=== PATIENT | female | born 1965 | race Caucasian/White ===

== ENCOUNTER 2024-03-10 14:48 | Outpatient (AMB) | payer OTHER, SELFPAY ==
--- NOTE | 2024-03-10 14:59 | A.OFFPC_ITS ---
Vital Signs 03/10/24 15:03 Height 5 ft 1 in Weight 104 lb 4 oz BMI 19.7 BP 118/76 Blood Pressure Location Rt brachial Position Sitting Respiration 12 Pulse 88 Pulse Source Pulse Oximeter Temp 97.8 F Temp Source Oral Pulse Oximetry (%) 99 Oxygen Delivery Method Room Air Intake Visit Reasons: Establish Care transfer from [facility] Is last menstrual period known: No Allergies lidocaine Allergy (Severe, Verified 03/10/24 15:01) Heart erthythmia Tobacco use date assessed: 03/10/24 Dental Screening Dental Screen Date: 03/10/24 Did you have a dental visit in the last 12 months?: Yes Did you have a dental problem in the last 6 months where you did not have access to dental care?: No Was dental information given to patient?: Patient has dentist HPI HPI Comments History of Present Illness Details This is a 58 year old female with a past medical history of hyperlipidemia, anxiety presenting to [facility]. Her previous records are not available for review. Multiple concerns Concerns over development of multiple henderson angiomas over the course of 2-3 months. Saw dermatology. She has been bothered by dry, gritty and injected eyes. She was worried about thyroid eye disease. She saw ophtho who confirmed they were dry-advised to use eye drops She reports chronic polyuria. She says when previously hospitalized they nursing staff could not believe how much urine she produced. She has history of dyspepsia, heartburn. She had double endoscopy within the last few years She does endorse dry mouth, frequent dental caries as child. She denies rash, fevers. [facility] Medical History (Updated 03/12/24 @ 11:17 by Teodora Bradley MD) IBS (irritable bowel syndrome) Shingles Hernia Surgical History (Updated 03/10/24 @ 15:34 by Taryn Vazquez CMA) H/O Spinal surgery H/O breast biopsy H/O section Family History (Updated 03/10/24 @ 15:24 by Taryn Vazquez CMA) Mother Hypercholesteremia Thyroid disorder Dementia Father Brain cancer Maternal Grandmother Alzheimer disease Paternal Grandmother Dementia Paternal Grandfather Prostate cancer Social History Housing: House Patient Tobacco Use Status: Never used Tobacco e-Cigarette/Vaping Use: Never Used service: No Current occupational status: employed Current occupation: CPA Current occupational exposures/hazards: No Cognitive needs: No Hearing needs: No Vision needs: No Questionnaire PHQ-9 Over the last 2 weeks, how often have you been bothered by any of the following problems? 1. Little interest or pleasure in doing things: not at all 2. Feeling down, depressed, or hopeless: not at all 3. Trouble falling or staying asleep, or sleeping too much: several days 4. Feeling tired or having little energy: not at all 5. Poor appetite or overeating: not at all 6. Feeling bad about yourself - or that you are a failure or have let yourself or your family down: not at all 7. Trouble concentrating on things, such as reading the newspaper or watching television: several days 8. Moving or speaking so slowly that other people could have noticed. Or the opposite - being so fidgety or restless that you have been moving around a lot more than usual: not at all 9. Thoughts that you would be better off or of hurting yourself in some way: not at all Total score: 2 Depression Screening Interpretation: Negative Depression Screening Done: Yes 74381 - PHQ-9 Billing: Yes Source: Developed by Drs. Kendrick Randall, Rhiannon Osborn, Gilberto Stubbs and colleagues, with an educational latricia from [employer]. Thrive Questionnaire Date Thrive assessed: 03/10/24 I am a: Patient What is your living situation today?: I have a steady place to live Within the past 12 months, did the food you bought not last and you didn't have the money to get more?: Never true Within the past 12 months, did you worry whether your food would run out before you got money to buy more?: Never true Do you have trouble paying for medicines?: No Do you have trouble getting transportation to medical appointments?: No Do you have trouble paying your heating and electricity bill?: No Do you have trouble taking care of your child, family member or friend?: No Do you have trouble with day-to-day activities such as bathing, preparing meals, shopping, managing finances, etc.?: No Are you currently unemployed and looking for a job?: No Are you interested in more education?: No Please select the resources that you would like help with: None Currently or been in a relationship where the following occur: no concerns reported THRIVE Score: 0 AUDIT C Alcohol Use Questionnaire (AUDIT-C) 1. How often do you have a drink containing alcohol?: 2-3 times a week 2. How many drinks containing alcohol do you have on a typical day when you are drinking?: 1 or 2 3. How often do you have six or more drinks on one occasion?: Never Total Score: 3 RAD-7 AMB Questionnaire RAD-7 Date RAD - 7 assessed: 03/10/24 Feeling nervous, anxious, or on edge: 1 = Several days Not being able to stop or control worryin = Not at all Worrying too much about different things: 1 = Several days Trouble relaxin = Several days Being so restless that it is hard to sit still: 0 = Not at all Becoming easily annoyed or irritable: 1 = Several days Feeling afraid as if something awful might happen: 0 = Not at all Total RAD-7 score (0-4 normal; 5-9 mild; 10-14 moderate; 15-21 severe): 4 Source: Developed by Drs. Kendrick Randall, Rhiannon Osborn, Gilberto Stubbs and colleagues, with an educational latricia from [employer]. RAD-7 Assessment Billing RAD-7 Assessment Tool: RAD-7 Assessment 56556 Review of Systems Const Details: ROS see HPI Physical exam (Primary Care) Vital Signs: Last Vital Signs Temp 97.8 F 03/10/24 15:03 Pulse 88 03/10/24 15:03 Resp 12 03/10/24 15:03 BP 118/76 03/10/24 15:03 Pulse Ox 99 03/10/24 15:03 Oxygen Delivery Method Room Air 03/10/24 15:03 PHYSICAL EXAM: GENERAL: Alert and oriented x 3. NAD EYES: EOMI. scleral, conjectival injection HENT: Moist mucous membranes. scattered anterior cervical LN LUNGS: Clear to auscultation bilaterally. CARDIOVASCULAR: Regular rate and rhythm. +diastolic murmur ABDOMEN: Soft, non-tender +bs EXTREMITIES: No edema. Non-tender. SKIN: No rashes or lesions. Warm. NEUROLOGIC: No focal neurological deficits. PSYCHIATRIC: Cooperative. Appropriate mood and affect BMI result Body Mass Index 19.7 Tobacco/Smoking Status: Tobacco use Status Tobacco use date assessed 03/10/24 03/10/24 15:06 Patient Tobacco Use Status Never used Tobacco 03/10/24 15:06 e-Cigarette/Vaping Use Never Used 03/10/24 15:06 PHQ-9: PHQ-9 Score PHQ-9: Total score 2 03/12/24 11:17 Depression Screening Interpretation: Negative Thrive Assessment: Date of Thrive Assessment Date Thrive assessed 03/10/24 03/10/24 15:38 Currently or been in a relationship where the following occur: no concerns reported Assessment and Plan Assessment & Plan (1) Henderson angioma: Comment: referral to [place] [facility] Code(s): D18.01 - Hemangioma of skin and subcutaneous tissue (2) Dry eyes: Comment: run autoimmune labs. Code(s): H04.123 - Dry eye syndrome of bilateral lacrimal glands (3) Polyuria: Code(s): R35.89 - Other polyuria (4) Weight loss: Code(s): R63.4 - Abnormal weight loss (5) Hyperlipidemia: Code(s): E78.5 - Hyperlipidemia, unspecified Qualifiers: Hyperlipidemia type: unspecified Qualified Code(s): E78.5 - Hyperlipidemia, unspecified (6) Screening for metabolic disorder: Code(s): Z13.228 - Encounter for screening for other metabolic disorders (7) Heart murmur: Comment: Echo ordered Code(s): R01.1 - Cardiac murmur, unspecified Orders: Orders Complete Blood Count Auto Diff 03/10/24 D18.01 - Hemangioma of skin and subcutaneous tissue, E78.5 - Hyperlipidemia, unspecified, H04.123 - Dry eye syndrome of bilateral lacrimal glands, R35.89 - Other polyuria, R63.4 - Abnormal weight loss, Z13.228 - Encounter for screening for other metabolic disorders Comprehensive Met. Panel 03/10/24 D18.01 - Hemangioma of skin and subcutaneous tissue, E78.5 - Hyperlipidemia, unspecified, H04.123 - Dry eye syndrome of bilateral lacrimal glands, R35.89 - Other polyuria, R63.4 - Abnormal weight loss, Z13.228 - Encounter for screening for other metabolic disorders Anti-Centromere B Antibodies 03/10/24 D18.01 - Hemangioma of skin and subcutaneous tissue, E78.5 - Hyperlipidemia, unspecified, H04.123 - Dry eye syndrome of bilateral lacrimal glands, R35.89 - Other polyuria, R63.4 - Abnormal weight loss, Z13.228 - Encounter for screening for other metabolic disorders Neutrophil Cytoplasma Ab 03/10/24 D18.01 - Hemangioma of skin and subcutaneous tissue, E78.5 - Hyperlipidemia, unspecified, H04.123 - Dry eye syndrome of bilateral lacrimal glands, R35.89 - Other polyuria, R63.4 - Abnormal weight loss, Z13.228 - Encounter for screening for other metabolic disorders LUCIE Reflex Titer and Pattern 03/10/24 D18.01 - Hemangioma of skin and subcutaneous tissue, E78.5 - Hyperlipidemia, unspecified, H04.123 - Dry eye syndrome of bilateral lacrimal glands, R35.89 - Other polyuria, R63.4 - Abnormal weight loss, Z13.228 - Encounter for screening for other metabolic disorders Tryptase 03/10/24 D18.01 - Hemangioma of skin and subcutaneous tissue, E78.5 - Hyperlipidemia, unspecified, H04.123 - Dry eye syndrome of bilateral lacrimal glands, R35.89 - Other polyuria, R63.4 - Abnormal weight loss, Z13.228 - Encounter for screening for other metabolic disorders Vitamin B12 03/10/24 D18.01 - Hemangioma of skin and subcutaneous tissue, E78.5 - Hyperlipidemia, unspecified, H04.123 - Dry eye syndrome of bilateral lacrimal glands, R35.89 - Other polyuria, R63.4 - Abnormal weight loss, Z13.228 - Encounter for screening for other metabolic disorders Sjogren's Antibodies 03/10/24 D18.01 - Hemangioma of skin and subcutaneous tissue, E78.5 - Hyperlipidemia, unspecified, H04.123 - Dry eye syndrome of bilateral lacrimal glands, R35.89 - Other polyuria, R63.4 - Abnormal weight loss, Z13.228 - Encounter for screening for other metabolic disorders Osmolality, Serum 03/10/24 D18.01 - Hemangioma of skin and subcutaneous tissue, E78.5 - Hyperlipidemia, unspecified, H04.123 - Dry eye syndrome of bilateral lacrimal glands, R35.89 - Other polyuria, R63.4 - Abnormal weight loss, Z13.228 - Encounter for screening for other metabolic disorders Scleroderma 70 Antibody 03/10/24 D18.01 - Hemangioma of skin and subcutaneous tissue, E78.5 - Hyperlipidemia, unspecified, H04.123 - Dry eye syndrome of bilateral lacrimal glands, R35.89 - Other polyuria, R63.4 - Abnormal weight loss, Z13.228 - Encounter for screening for other metabolic disorders Erythrocyte Sedimentation Rate 03/10/24 D18.01 - Hemangioma of skin and subcutaneous tissue, E78.5 - Hyperlipidemia, unspecified, H04.123 - Dry eye syndrome of bilateral lacrimal glands, R35.89 - Other polyuria, R63.4 - Abnormal weight loss, Z13.228 - Encounter for screening for other metabolic disorders Thyroid Stimulating Hormone 03/10/24 D18.01 - Hemangioma of skin and subcutaneous tissue, E78.5 - Hyperlipidemia, unspecified, H04.123 - Dry eye syndrome of bilateral lacrimal glands, R35.89 - Other polyuria, R63.4 - Abnormal weight loss, Z13.228 - Encounter for screening for other metabolic disorders UA w Microscopic 03/10/24 D18.01 - Hemangioma of skin and subcutaneous tissue, E78.5 - Hyperlipidemia, unspecified, H04.123 - Dry eye syndrome of bilateral lacrimal glands, R35.89 - Other polyuria, R63.4 - Abnormal weight loss, Z13.228 - Encounter for screening for other metabolic disorders Osmolality Urine 03/10/24 D18.01 - Hemangioma of skin and subcutaneous tissue, E78.5 - Hyperlipidemia, unspecified, H04.123 - Dry eye syndrome of bilateral lacrimal glands, R35.89 - Other polyuria, R63.4 - Abnormal weight loss, Z13.228 - Encounter for screening for other metabolic disorders Sodium, 24Hr Urine Group 03/10/24 D18.01 - Hemangioma of skin and subcutaneous tissue, E78.5 - Hyperlipidemia, unspecified, H04.123 - Dry eye syndrome of bilateral lacrimal glands, R35.89 - Other polyuria, R63.4 - Abnormal weight loss, Z13.228 - Encounter for screening for other metabolic disorders Lipid Panel 03/10/24 E78.5 - Hyperlipidemia, unspecified Coding Level of Care Code Tele Est Pt Level 5 (35960) Complex EM visit Add On G2211 Diagnoses Henderson angioma D18.01 Dry eyes H04.123 Polyuria R35.89 Weight loss R63.4 Hyperlipidemia, unspecified hyperlipidemia type E78.5 Hyperlipidemia type: unspecified Screening for metabolic disorder Z13.228 Heart murmur R01.1 Additional Codes RAD-7 Assessment Billing - RAD-7 Assessment Tool: RAD-7 Assessment 35966 ([id number])
[2024-03-10 15:03] VITALS: BP 118/76; PULSE 88; RESP 12; TEMP 36.6; O2SAT 99; BMI 19.7
== END 2024-03-10 16:29 | disposition home or self-care (01) ==
PROVIDERS: PCP Internal Medicine; Visit Provider Internal Medicine
DX: D18.01 Hemangioma of skin and subcutaneous tissue (principal); H04.123 Dry eye syndrome of bilateral lacrimal glands; R35.89 Other polyuria; R63.4 Abnormal weight loss; E78.5 Hyperlipidemia, unspecified; Z13.228 Encounter for screening for other metabolic disorders; R01.1 Cardiac murmur, unspecified
CPT/HCPCS: 99214; G2211

== ENCOUNTER 2024-03-13 08:43 | Outpatient (REF) | payer OTHER, SELFPAY ==
[2024-03-13 11:31] LABS: MANUAL DIFF FLAG NO
[2024-03-13 11:35] LABS: Basophils Percent Auto 0.9 % (0-2); Eosinophils Absolute Auto 0.1 X10*3/uL (0.0-0.4); Eosinophils Percent Auto 3.1 % (0-4); Hematocrit 39.7 % (37.0-47.0); Hemoglobin 13.1 g/dl (12.0-16.0); Imm Gran Abs Auto 0.01 X10*3/uL (0.00-0.03); Imm Gran Pct Auto 0.3 % (0.0-0.4); Lymphocytes Absolute Auto 1.2 X10*3/uL (1.2-4.9); Lymphocytes Percent Auto 33.1 % (20-40); Mean Corpuscular Volume 91.1 fL (80.0-98.0); Mean Platelet Volume 10.9 fL (9.4-12.3); Monocytes Absolute Auto 0.2 X10*3/uL (0.1-1.2); Monocytes Percent Auto 6.6 % (2-11); Platelet Count 227 X10*3/uL (160-400); Red Blood Count 4.36 X10*6/uL (4.20-5.50); White Blood Count 3.5 X10*3/uL (4.8-10.8)
[2024-03-13 12:17] LABS: Erythrocyte Sedimentation Rate 6 MM/HR (0-20)
[2024-03-13 12:19] LABS: Appearance Urine Clear; Color Urine Yellow; Glucose Urine UA Negative (Negative); Leukocyte Esterase Urine Negative (Negative); Nitrite Urine Negative (Negative); Specific Gravity - Urine <= 1.005 (1.005-1.025); Urine Blood Negative (Negative); Urine Ketones Negative (Negative); Urine Protein Negative (Neg-Trace)
[2024-03-13 12:25] LABS: Bacteria Urine None Seen (None Seen); Hyaline Casts Urine 0-2 /LPF (0-2); RBC Urine 0-2 /HPF (0-2); Squamous Epithelial Cell Urine 0-2 /HPF (0-2); WBC Urine 0-5 /HPF (0-5)
[2024-03-13 12:27] LABS: Alanine Aminotransferase 32 U/L (0-31); Albumin Level 4.3 g/dL (3.5-5.0); Alkaline Phosphatase 73 U/L (39-117); Anion Gap 14 (12-20); Aspartate Amino Transferase 33 U/L (5-31); Bilirubin Total 0.9 mg/dL (0.0-1.0); Blood Urea Nitrogen 14 mg/dL (9-16); Calcium 9.8 mg/dL (8.4-10.2); Carbon Dioxide 27 mmol/L (22-29); Chloride 106 mmol/L (96-108); Cholesterol 202 mg/dL (<200); Estimated Glomerular Filt Rate > 60; Glucose Random 94 mg/dL (60-115); HDL Cholesterol 82 mg/dL (>40); LDL Cholesterol Calculated 112 mg/dL (<100); Potassium 3.8 mmol/L (3.3-5.1); Sodium 143 mmol/L (135-145); Total Protein 6.5 g/dL (6.5-8.0); Triglycerides 43 mg/dL (<150)
[2024-03-13 12:29] LABS: Thyroid Stimulating Hormone 2.17 uIU/mL (0.32-4.0)
[2024-03-13 12:29] LABS: Osmolality Urine 184 mosm/kg (373-1093)
[2024-03-13 12:36] LABS: Vitamin B12 420 pg/mL (200-900)
[2024-03-13 15:22] LABS: Osmolality, Serum 293 mosm/kg (281-305)
[2024-03-14 20:08] LABS: Anti-Centromere B Antibodies <1.0 NEG AI (<1.0 NEG); Antibody to SS-A Antigen <1.0 NEG AI (<1.0 NEG); Antibody to SS-B Antigen <1.0 NEG AI (<1.0 NEG); Scleroderma 70 Antibody <1.0 NEG AI (<1.0 NEG)
[2024-03-15 13:38] LABS: Neutrophil Cyto Ab Screen NEGATIVE (NEGATIVE)
[2024-03-16 12:33] LABS: ANA Titer 2 1:40 titer; Anti Nuclear Antibody Screen POSITIVE (NEGATIVE); Anti Nuclear Antibody Titer 1:40 titer
== END 2024-03-13 08:44 | disposition home or self-care (01) ==
LOC: HO.WFDLDS 08:43
PROVIDERS: Visit Provider Internal Medicine
DX: D18.01 Hemangioma of skin and subcutaneous tissue (principal); H04.123 Dry eye syndrome of bilateral lacrimal glands; R35.89 Other polyuria; R63.4 Abnormal weight loss; E78.5 Hyperlipidemia, unspecified; Z13.228 Encounter for screening for other metabolic disorders
CPT/HCPCS: 36415; 80053; 80061; 81001; 82607; 83520; 83930; 83935; 84443; 85025; 85652; 86036; 86038; 86039; 86235

== ENCOUNTER 2024-03-28 09:13 | Outpatient (REF) | payer OTHER, SELFPAY ==
[2024-03-28 11:29] LABS: MANUAL DIFF FLAG NO
[2024-03-28 11:55] LABS: Basophils Percent Auto 0.5 % (0-2); Eosinophils Absolute Auto 0.1 X10*3/uL (0.0-0.4); Eosinophils Percent Auto 1.5 % (0-4); Hematocrit 39.3 % (37.0-47.0); Hemoglobin 13.2 g/dl (12.0-16.0); Imm Gran Abs Auto 0.01 X10*3/uL (0.00-0.03); Imm Gran Pct Auto 0.3 % (0.0-0.4); Lymphocytes Absolute Auto 1.1 X10*3/uL (1.2-4.9); Lymphocytes Percent Auto 27.4 % (20-40); Mean Corpuscular HGB Conc 33.6 g/dl (31.0-35.0); Mean Corpuscular Hemoglobin 30.3 pg (27.0-33.0); Mean Corpuscular Volume 90.3 fL (80.0-98.0); Mean Platelet Volume 10.7 fL (9.4-12.3); Monocytes Absolute Auto 0.3 X10*3/uL (0.1-1.2); Monocytes Percent Auto 6.9 % (2-11); Neutrophils Absolute Auto 2.5 x10*3/uL (2.0-8.3); Neutrophils Percent Auto 63.4 % (45-73); Platelet Count 225 X10*3/uL (160-400); Red Blood Count 4.35 X10*6/uL (4.20-5.50); Red Cell Distribution Width 13.1 % (11.0-16.0); White Blood Count 3.9 X10*3/uL (4.8-10.8)
[2024-03-28 12:09] LABS: Osmolality, Serum 297 mosm/kg (281-305)
[2024-03-28 12:17] LABS: Appearance Urine Clear; Color Urine Yellow; Glucose Urine UA Negative (Negative); Leukocyte Esterase Urine Negative (Negative); Nitrite Urine Negative (Negative); PH 6.5 (5.0-9.0); Specific Gravity - Urine <= 1.005 (1.005-1.025); Urine Blood Negative (Negative); Urine Ketones Negative (Negative); Urine Protein Negative (Neg-Trace)
[2024-03-28 12:23] LABS: Alanine Aminotransferase 25 U/L (0-31); Albumin Level 4.2 g/dL (3.5-5.0); Alkaline Phosphatase 83 U/L (39-117); Anion Gap 10 (12-20); Aspartate Amino Transferase 29 U/L (5-31); Bilirubin Total 0.4 mg/dL (0.0-1.0); Blood Urea Nitrogen 17 mg/dL (9-16); Calcium 9.5 mg/dL (8.4-10.2); Carbon Dioxide 27 mmol/L (22-29); Chloride 109 mmol/L (96-108); Estimated Glomerular Filt Rate > 60; Glucose Random 102 mg/dL (60-115); Potassium 3.7 mmol/L (3.3-5.1); Sodium 142 mmol/L (135-145); Total Protein 6.5 g/dL (6.5-8.0)
[2024-03-28 12:26] LABS: Osmolality Urine 105 mosm/kg (373-1093)
[2024-03-28 12:46] LABS: Bacteria Urine None Seen (None Seen); Hyaline Casts Urine 0-2 /LPF (0-2); RBC Urine 0-2 /HPF (0-2); Squamous Epithelial Cell Urine 0-2 /HPF (0-2); WBC Urine 0-5 /HPF (0-5)
[2024-03-28 14:21] LABS: Total Volume 24 Hour Urine 1700 mL
[2024-03-28 14:26] LABS: Creatinine, 24Hr Urine 0.8 G/Day (1.0-2.0); Creatinine, mg/dL 49.52; Sodium 24 Hr Urine 71.4 mmol/Day (40-220)
== END 2024-03-28 09:14 | disposition home or self-care (01) ==
LOC: HO.WFDLDS 09:13
PROVIDERS: Visit Provider Internal Medicine
DX: E78.5 Hyperlipidemia, unspecified (principal); R63.4 Abnormal weight loss; R35.89 Other polyuria; D18.01 Hemangioma of skin and subcutaneous tissue; H04.123 Dry eye syndrome of bilateral lacrimal glands; Z13.228 Encounter for screening for other metabolic disorders; R79.89 Other specified abnormal findings of blood chemistry; R74.8 Abnormal levels of other serum enzymes
CPT/HCPCS: 36415; 80053; 81001; 83520; 83930; 83935; 84300; 85025

== ENCOUNTER 2024-04-07 14:02 | Outpatient (AMB) | payer OTHER, SELFPAY ==
--- NOTE | 2024-04-07 14:15 | MHC.PC.OV ---
Vital Signs 04/07/24 14:16 Height 5 ft 0.83 in Weight 104 lb 2 oz BMI 19.8 BP 118/68 Blood Pressure Location Lt brachial Position Sitting Respiration 14 Pulse 87 Pulse Source Pulse Oximeter Pulse Oximetry (%) 97 Oxygen Delivery Method Room Air Intake Visit Reasons: Follow up labs Intake Note: Follow up Finished Goods Stock Clerk Required: No Allergies lidocaine Allergy (Severe, Verified 04/07/24 14:15) Heart erthythmia Tobacco use date assessed: 03/10/24 Dental Screening Dental Screen Date: 03/10/24 HPI HPI Comments History of Present Illness Details This is a 58 year old female with a past medical history of hyperlipidemia, anxiety presenting to review labs Seen recently for multiple concerns Concerns over development of multiple lorenzo angiomas over the course of 2-3 months. Saw dermatology. She has been bothered by dry, gritty and injected eyes. She was worried about thyroid eye disease. She saw ophtho who confirmed they were dry-advised to use eye drops She reports chronic polyuria. She says when previously hospitalized they nursing staff could not believe how much urine she produced. She has history of dyspepsia, heartburn. She had double endoscopy within the last few years She does endorse dry mouth, frequent dental caries as child. She denies rash, fevers. Continues to have all these concerns She saw her budget assistant again. She repeated labs for mild elevation in lfts. These normalized. She did urine studies significant for very dilute urine. The urine volume at the upper end of normal-referred to nephrology She has had two mildly elevated tryptase levels-referred to allergy and immunology ROS see HPI PHYSICAL EXAM: GENERAL: Alert and oriented x 3. NAD EYES: EOMI. Anicteric. HENT: Moist mucous membranes. LUNGS: Clear to auscultation bilaterally. CARDIOVASCULAR: Regular rate and rhythm. No murmur. No JVD. ABDOMEN: Soft, non-tender +bs EXTREMITIES: No edema. Non-tender. SKIN: scattered lorenzo angiomas NEUROLOGIC: No focal neurological deficits. CN II-XII grossly intact PSYCHIATRIC: Cooperative. Appropriate mood and affect [facility] Medical History IBS (irritable bowel syndrome) Shingles Hernia Surgical History H/O Spinal surgery H/O breast biopsy H/O section Family History Mother Hypercholesteremia Thyroid disorder Dementia Father Brain cancer Maternal Grandmother Alzheimer disease Paternal Grandmother Dementia Paternal Grandfather Prostate cancer Social History Housing: House Patient Tobacco Use Status: Never used Tobacco e-Cigarette/Vaping Use: Never Used service: No Current occupational status: employed Current occupation: CPA Current occupational exposures/hazards: No Cognitive needs: No Hearing needs: No Vision needs: No Questionnaire Thrive Questionnaire Date Thrive assessed: 03/10/24 RAD-7 AMB Questionnaire RAD-7 Date RAD - 7 assessed: 03/10/24 Source: Developed by Drs. Kendrick Randall, Rhiannon Osborn, Gilberto Stubbs and colleagues, with an educational latricia from [employer]. Physical exam (Primary Care) Vital Signs: Last Vital Signs Pulse 87 04/07/24 14:16 Resp 14 04/07/24 14:16 BP 118/68 04/07/24 14:16 Pulse Ox 97 04/07/24 14:16 Oxygen Delivery Method Room Air 04/07/24 14:16 BMI result Body Mass Index 19.8 Tobacco/Smoking Status: Tobacco use Status Tobacco use date assessed 03/10/24 04/07/24 14:18 Patient Tobacco Use Status Never used Tobacco 04/07/24 14:18 e-Cigarette/Vaping Use Never Used 04/07/24 14:18 Thrive Assessment: Date of Thrive Assessment Date Thrive assessed 03/10/24 04/07/24 14:18 Assessment and Plan Assessment & Plan (1) Elevated serum tryptase: Code(s): R74.8 - Abnormal levels of other serum enzymes Plan: referred to allergy and immunology, Dr Hinds (2) Polyuria: Code(s): R35.89 - Other polyuria Plan: referral placed to nephrology for further work up (3) Diabetes insipidus: Code(s): 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 (4) Bilateral hand pain: Code(s): M79.641 - Pain in right hand; M79.642 - Pain in left hand Plan: labs normal (RF, CCP) xray hands ordered Discussed LUCIE titer insignificant (5) Rheumatoid nodule: Code(s): M06.30 - Rheumatoid nodule, unspecified site Orders: Orders XR hand RT min 3V 04/07/24 M06.30 - Rheumatoid nodule, unspecified site, M79.641 - Pain in right hand, M79.642 - Pain in left hand XR hand LT min 3V 04/07/24 M06.30 - Rheumatoid nodule, unspecified site, M79.641 - Pain in right hand, M79.642 - Pain in left hand Referrals Nephrology Referral E23.2 - Diabetes insipidus, M06.30 - Rheumatoid nodule, unspecified site, M79.641 - Pain in right hand, M79.642 - Pain in left hand Allergy & Immunology Referral H04.123 - Dry eye syndrome of bilateral lacrimal glands, R74.8 - Abnormal levels of other serum enzymes Coding Level of Care Code Est Pt Level 4 (79158) Complex EM visit Add On G2211 Diagnoses Elevated serum tryptase R74.8 Polyuria R35.89 Diabetes insipidus E23.2 Bilateral hand pain M79.641; M79.642 Rheumatoid nodule M06.30
[2024-04-07 14:16] VITALS: BP 118/68; PULSE 87; RESP 14; O2SAT 97; BMI 19.8
== END 2024-04-07 15:13 | disposition home or self-care (01) ==
PROVIDERS: PCP Internal Medicine; Visit Provider Internal Medicine
DX: R74.8 Abnormal levels of other serum enzymes (principal); E23.2 Diabetes insipidus; M06.30 Rheumatoid nodule, unspecified site; R35.89 Other polyuria; M79.641 Pain in right hand; M79.642 Pain in left hand
CPT/HCPCS: 99214; G2211

== ENCOUNTER 2024-04-26 14:39 | Outpatient (REF) | payer OTHER, SELFPAY ==
--- NOTE | ~2024-04-26 | XR_ITS ---
EXAMINATION: XR HAND, RIGHT CLINICAL INFORMATION: Right hand pain COMPARISON: None available. TECHNIQUE: PA, lateral, and oblique views of the right hand. FINDINGS: Question periarticular osteopenia. No focal erosion is seen. No evidence of acute fracture or dislocation. No significant degenerative arthritic changes are noted at multiple joints. No soft tissue calcifications. XR/XR hand RT min 3V IMPRESSION: Question periarticular osteopenia in the right hand. No focal erosion of acute osseous abnormality.
--- NOTE | ~2024-04-26 | XR_ITS ---
EXAMINATION: XR HAND, LEFT CLINICAL INFORMATION: Left hand pain. COMPARISON: None available. TECHNIQUE: PA, lateral, and oblique views of the left hand. FINDINGS: Question periarticular osteopenia. No focal erosion is seen. No evidence of acute fracture or dislocation. No significant arthritic or degenerative changes are noted at multiple joints. No soft tissue calcifications. XR/XR hand LT min 3V IMPRESSION: Question periarticular osteopenia in the left hand. No focal erosion or acute osseous abnormality.
== END 2024-04-26 14:40 | disposition home or self-care (01) ==
LOC: HO.XRAY 14:39
PROVIDERS: Absent Provider Internal Medicine; PCP Internal Medicine; Visit Provider Internal Medicine Hypertension Specialist
DX: M79.641 Pain in right hand (principal); M79.642 Pain in left hand; M06.30 Rheumatoid nodule, unspecified site; R35.89 Other polyuria
CPT/HCPCS: 73130

== ENCOUNTER 2024-04-26 14:39 | Outpatient (AMB) | payer OTHER, SELFPAY ==
--- NOTE | 2024-04-26 14:40 | HO.NEPHOV ---
Vital Signs 04/26/24 14:41 Height 5 ft 1 in Weight 103 lb BMI 19.5 BP 112/74 Blood Pressure Location Lt brachial Position Sitting Pulse 91 Pulse Source Pulse Oximeter Pulse Oximetry (%) 100 Oxygen Delivery Method Room Air Intake Visit Reasons: Dx-Diabetes insipidus/Pain in Rt&Lt hand/ Conf Snow Maker Required: No Accompanied by: Self / Same As Patient Allergies lidocaine Allergy (Severe, Verified 04/26/24 14:43) Heart erthythmia HPI Comments Details: Tarah is a pleasant 58-year-old woman who has been enjoying reasonably good health. She has had increased urinary frequency. There is a question of diabetes insipidus. She underwent a 24 urine collection which revealed a volume of 1700 mL. Urine specific gravity was low. She has had no renal issues in the past. She has not taking any lithium. No history suggestive of polydipsia. She has had multiple other issues including lorenzo angiomas. History of schwannoma status post surgery few years ago. She has had no significant weight loss or weight gain. No new rash. No definite of arthritis. However she has had dry eyes and dry mouth. No urethritis or UTIs No history of any smoking alcohol abuse. She works as an traveling repair accountant. No family history of any renal issues currently tissue disease [facility] Medical History IBS (irritable bowel syndrome) Shingles Hernia Surgical History H/O Spinal surgery H/O breast biopsy H/O section Family History Mother Hypercholesteremia Thyroid disorder Dementia Father Brain cancer Maternal Grandmother Alzheimer disease Paternal Grandmother Dementia Paternal Grandfather Prostate cancer Social History Housing: House Patient Tobacco Use Status: Never used Tobacco e-Cigarette/Vaping Use: Never Used service: No Current occupational status: employed Current occupation: CPA Current occupational exposures/hazards: No Cognitive needs: No Hearing needs: No Vision needs: No Physical Exam Vital Signs: Last Vital Signs Pulse 91 04/26/24 14:41 BP 112/74 04/26/24 14:41 Pulse Ox 100 04/26/24 14:41 Oxygen Delivery Method Room Air 04/26/24 14:41 BMI result Body Mass Index 19.5 Const General: comfortable; No acute distress Orientation/consciousness: patient oriented x3 Eyes General: appearance normal, both eyes and all related structures Visual Clement: normal visual clement by confrontation Neck Neck: Yes supple and Yes no JVD Resp Effort & Inspection: normal respiratory effort and respiratory effort not decreased Auscultation: rhonchi Cardio Palpation: no palpable S3 and no palpable S4 Heart sounds: no rubs GI Inspection: Yes normal to inspection Palpation (GI): Soft to palpation Percussion: Yes normal to percussion Auscultation: normal bowel sounds General: Yes no CVA tenderness Back/Spine/Pelvis Back: no CVA tenderness Skin General skin exam: no petechiae and no purpura Neuro General: patient oriented x3 and no focal motor deficits Extrem General: No clubbing and No edema Results Reviewed Nephrology Results: Hgb 13.2 g/dl (12.0-16.0) 03/28/24 WBC 3.9 X10*3/uL (4.8-10.8) L 03/28/24 Plt Count 225 X10*3/uL (160-400) 03/28/24 Sodium 142 mmol/L (135-145) 03/28/24 Potassium 3.7 mmol/L (3.3-5.1) 03/28/24 Chloride 109 mmol/L (96-108) H 03/28/24 Carbon Dioxide 27 mmol/L (22-29) 03/28/24 BUN 17 mg/dL (9-16) H 03/28/24 Creatinine 0.72 mg/dL (0.5-1.4) 03/28/24 Calcium 9.5 mg/dL (8.4-10.2) 03/28/24 Urine Protein Negative mg/dL (Neg-Trace) 03/28/24 Assessment & Plan Assessment & Plan (1) Polyuria: Code(s): R35.89 - Other polyuria Category: Medical Plan: Tarah is a chief complaint of increased urinary frequency. We will certainly rule out diabetes insipidus. However the recent 24 urine collection did not support the diagnosis of diabetes insipidus based on volume. However Urine osmolality was rather low It was worth repeating the 24 urine collection for volume for confirmation. There is a mild elevation in the BUN but serum creatinine is in the normal range and has been stable. LUCIE has been positive. SSA and SSB antibodies were negative Scleroderma antibody was negative Anca negative. She will benefit from a rheumatological evaluation. Orders: Orders Sodium, 24Hr Urine Group 04/26/24 R35.89 - Other polyuria Osmolality Urine 04/26/24 R35.89 - Other polyuria Osmolality, Serum 04/26/24 R35. - Other polyuria Creatinine, 24 Hr Group 04/26/24 R35.89 - Other polyuria Uric Acid 04/26/24 R35.89 - Other polyuria Parathyroid Hormone Intact 04/26/24 R35. - Other polyuria Cortisol, Free 04/26/24 R35. - Other polyuria UA and rflx microscopic 04/26/24 R35. - Other polyuria Coding Level of Care Code New Pt Level 4 (55910) Diagnoses Polyuria R389
[2024-04-26 14:41] VITALS: BP 112/74; PULSE 91; O2SAT 100; BMI 19.5
== END 2024-04-26 15:21 | disposition home or self-care (01) ==
PROVIDERS: PCP Internal Medicine; Visit Provider Internal Medicine Hypertension Specialist
DX: R35.89 Other polyuria (principal)
CPT/HCPCS: 99204

== ENCOUNTER 2024-05-04 09:25 | Outpatient (REF) | payer OTHER, SELFPAY ==
[2024-05-04 11:11] LABS: Total Volume 24 Hour Urine 1950 mL
[2024-05-04 11:11] LABS: Appearance Urine Clear; Color Urine Yellow; Glucose Urine UA Negative (Negative); Leukocyte Esterase Urine Negative (Negative); Nitrite Urine Negative (Negative); PH 6.5 (5.0-9.0); Specific Gravity - Urine <= 1.005 (1.005-1.025); Urine Blood Negative (Negative); Urine Ketones Negative (Negative); Urine Protein Negative (Neg-Trace)
[2024-05-04 11:24] LABS: Osmolality, Serum 295 mosm/kg (281-305)
[2024-05-04 11:26] LABS: Creatinine, 24Hr Urine 0.9 G/Day (1.0-2.0); Creatinine, mg/dL 46.18; Sodium 24 Hr Urine 70.2 mmol/Day (40-220)
[2024-05-04 11:32] LABS: Uric Acid 5.1 mg/dL (2.4-5.7)
[2024-05-04 11:38] LABS: Osmolality Urine 109 mosm/kg (373-1093)
[2024-05-04 11:51] LABS: Parathyroid Hormone Intact 64.3 pg/mL (8.7-77.1)
[2024-05-13 16:37] LABS: Cortisol, Free 0.44 mcg/dL
== END 2024-05-04 09:26 | disposition home or self-care (01) ==
LOC: HO.WFDLDS 09:25
PROVIDERS: Visit Provider Internal Medicine Hypertension Specialist
DX: R35.89 Other polyuria (principal)
CPT/HCPCS: 36415; 81003; 82530; 83930; 83935; 83970; 84300; 84550

== ENCOUNTER 2024-06-14 09:50 | Outpatient (AMB) | payer OTHER, SELFPAY ==
[2024-06-14 09:53] VITALS: BP 122/78; PULSE 99; O2SAT 108; BMI 19.6
--- NOTE | 2024-06-14 09:53 | HO.NEPHOV_ITS ---
Vital Signs 06/14/24 09:53 Height 5 ft 1 in Weight 104 lb BMI 19.6 BP 122/78 Blood Pressure Location Lt brachial Position Sitting Pulse 99 Pulse Source Pulse Oximeter Pulse Oximetry (%) 108 H Oxygen Delivery Method Room Air Intake Visit Reasons: 4 wk follow up/ Conf Labor Relations Manager Required: No Accompanied by: Self / Same As Patient Allergies lidocaine Allergy (Severe, Verified 06/14/24 09:55) Heart erthythmia HPI Comments Details: Tarah is a pleasant 58-year-old woman who has been enjoying reasonably good health. She has had increased urinary frequency. There is a question of diabetes insipidus. She underwent a 24 urine collection which revealed a volume of 1700 mL. Urine specific gravity was low. She has had no renal issues in the past. She has not taking any lithium. No history suggestive of polydipsia. She has had multiple other issues including lorenzo angiomas. History of schwannoma status post surgery few years ago. She has had no significant weight loss or weight gain. No new rash. No definite of arthritis. However she has had dry eyes and dry mouth. No urethritis or UTIs No history of any smoking alcohol abuse. She works as an senior corporate accountant. No family history of any renal issues currently tissue disease [facility] Medical History IBS (irritable bowel syndrome) Shingles Hernia Surgical History H/O Spinal surgery H/O breast biopsy H/O section Family History Mother Hypercholesteremia Thyroid disorder Dementia Father Brain cancer Maternal Grandmother Alzheimer disease Paternal Grandmother Dementia Paternal Grandfather Prostate cancer Social History Housing: House Patient Tobacco Use Status: Never used Tobacco e-Cigarette/Vaping Use: Never Used service: No Current occupational status: employed Current occupation: CPA Current occupational exposures/hazards: No Cognitive needs: No Hearing needs: No Vision needs: No Physical Exam Vital Signs: Last Vital Signs Pulse 99 06/14/24 09:53 BP 122/78 06/14/24 09:53 Pulse Ox 108 H 06/14/24 09:53 Oxygen Delivery Method Room Air 06/14/24 09:53 BMI result Body Mass Index 19.6 Const General: comfortable; No acute distress Orientation/consciousness: patient oriented x3 Eyes General: appearance normal, both eyes and all related structures Visual Clement: normal visual clement by confrontation Neck Neck: Yes supple and Yes no JVD Resp Effort & Inspection: normal respiratory effort and respiratory effort not decreased Auscultation: rhonchi Cardio Palpation: no palpable S3 and no palpable S4 Heart sounds: no rubs GI Inspection: Yes normal to inspection Palpation (GI): Soft to palpation Percussion: Yes normal to percussion Auscultation: normal bowel sounds General: Yes no CVA tenderness Back/Spine/Pelvis Back: no CVA tenderness Skin General skin exam: no petechiae and no purpura Neuro General: patient oriented x3 and no focal motor deficits Extrem General: No clubbing and No edema Results Reviewed Nephrology Results: Hgb 13.2 g/dl (12.0-16.0) 03/28/24 WBC 3.9 X10*3/uL (4.8-10.8) L 03/28/24 Plt Count 225 X10*3/uL (160-400) 03/28/24 Sodium 142 mmol/L (135-145) 03/28/24 Potassium 3.7 mmol/L (3.3-5.1) 03/28/24 Chloride 109 mmol/L (96-108) H 03/28/24 Carbon Dioxide 27 mmol/L (22-29) 03/28/24 BUN 17 mg/dL (9-16) H 03/28/24 Creatinine 0.72 mg/dL (0.5-1.4) 03/28/24 Calcium 9.5 mg/dL (8.4-10.2) 03/28/24 PTH Intact 64.3 pg/mL (8.7-77.1) 05/04/24 Urine Protein Negative mg/dL (Neg-Trace) 05/04/24 Assessment & Plan Assessment & Plan (1) Polyuria: Code(s): R35.89 - Other polyuria Category: Medical Plan: Tarah is a chief complaint of increased urinary frequency. No evidence of diabetes insipidus. Urine osmolality was rather low - most likely from excessive water intake. Repeat 24 urine collection had a volume if 1950 ml Renal function is normal No further work up is needed LUCIE has been positive. SSA and SSB antibodies were negative Scleroderma antibody was negative Anca negative. She will benefit from a rheumatological evaluation. (2) Positive ULCIE (antinuclear antibody): Code(s): R76.8 - Other specified abnormal immunological findings in serum Category: Medical Plan . Orders: Referrals Rheumatology Referral R76.8 - Other specified abnormal immunological findings in serum Coding Level of Care Code Est Pt Level 4 (26725) Diagnoses Polyuria R35.89 Positive LUCIE (antinuclear antibody) R76.8
== END 2024-06-14 10:10 | disposition home or self-care (01) ==
PROVIDERS: PCP Internal Medicine; Visit Provider Internal Medicine Hypertension Specialist
DX: R35.89 Other polyuria (principal); R76.8 Other specified abnormal immunological findings in serum
CPT/HCPCS: 99214

== ENCOUNTER → 2024-06-14 09:50 | Outpatient (BNVA) | payer OTHER, SELFPAY | PROVIDERS: PCP Internal Medicine; Visit Provider Internal Medicine Hypertension Specialist ==

== ENCOUNTER 2024-07-14 08:04 | Outpatient (AMB) | payer OTHER, SELFPAY ==
--- NOTE | 2024-07-14 08:07 | MHC.OFFVIS ---
Vital Signs 07/14/24 08:11 Height 5 ft 1 in Weight 102 lb 4.712 oz BMI 19.3 BP 115/64 Blood Pressure Location Lt brachial Position Sitting Pulse 105 H Pulse Source Pulse Oximeter Pulse Oximetry (%) 98 Oxygen Delivery Method Room Air Intake Visit Reasons: abnormal lab Intake Note: Patient presents for abnormal lab. Allergies lidocaine Allergy (Severe, Verified 07/14/24 08:10) Heart erthythmia Medication List - Last Reconciled 07/14/24 by Kyara Toney MD No Known Home Meds HPI Comments Details: Patient is a 58 y.o. female with HLD, anxiety, dry eyes who presents for evaluation of polyarthralgias. Patient notes that for the past 4 years she has been having intermittent joint pains mainly involving her PIPs and DIPs. She denies overt morning stiffness or inability to open and close her hands or swelling to her hands. She also reports worsening fatigue. States that she gets good sleep. But notes that she just feels tired throughout the day. She does report significant dry eyes and dry mouth with dental caries. Even while having the encounter patient had to get water to drink because her mouth would be so dry. Has seen an coastal/harbor defense officer who has formally diagnosed her with dry eyes. She denies facial swelling, lymphadenopathy. Denies rashes, photosensitivity, alopecia lymphadenopathy, chest pain/shortness of breath, inflammatory type joint pain, foamy urine, lower extremity edema, muscle weakness, Raynaud's Also denies history of seizure, CVA, psychosis, history of kidney problems, history of cytopenias, history of VTE Mom has Elan's disease. Otherwise no family history of autoimmune disease [facility] Medical History (Updated 07/14/24 @ 11:58 by Kyara Toney MD) Dry mouth and eyes IBS (irritable bowel syndrome) Shingles Hernia Surgical History H/O Spinal surgery H/O breast biopsy H/O section Family History Mother Hypercholesteremia Thyroid disorder Dementia Father Brain cancer Maternal Grandmother Alzheimer disease Paternal Grandmother Dementia Paternal Grandfather Prostate cancer Social History Housing: House Patient Tobacco Use Status: Never used Tobacco e-Cigarette/Vaping Use: Never Used service: No Current occupational status: employed Current occupation: CPA Current occupational exposures/hazards: No Cognitive needs: No Hearing needs: No Vision needs: No Review of Systems Const Details: Review of Systems Constitutional: Denies fever, chills, weight loss ENT: Denies vision changes, eye pain or eye redness, GI: Denies nausea, vomiting, diarrhea, abdominal pain, change in BM Pulm: Denies SOB, MATHIS, hemoptysis, wheezing Cards: Denies chest pain, palpitations Skin: Denies Raynaud's, rash, nail changes, photosensitivity, CIGARETTE MAKING EXAMINER: Denies headaches, weakness, paresthesias, recurrent falls MSK: as per HPI All other systems reviewed and are unremarkable except noted above Physical Exam Vital Signs: Last Vital Signs Pulse 105 H 07/14/24 08:11 BP 115/64 07/14/24 08:11 Pulse Ox 98 07/14/24 08:11 Oxygen Delivery Method Room Air 07/14/24 08:11 BMI result Body Mass Index 19.3 Const Other: Physical Examination Patient well appearing and in no apparent painful distress Able to rise from chair without support. ?Gait normal. Constitutional Mucous membranes pink and moist patient alert and cooperative HEENT Conjunctiva and sclera clear. ?Pupils equal round and reactive to light. ?No lymphadenopathy. ?Normal dentition. Respiratory System Normal respiratory effort and able to speak in complete sentences. ?Clear to auscultation bilaterally. ?No crackles, rales, rhonchi, wheezes heard. Cardiac System Regular rate and rhythm. ?S1 and S2 heard no murmurs. ?Radial pulses intact bilaterally MSK No deformity, swelling, abnormalities noted to bilateral hands. ?No evidence of synovitis. ?Able to move all joints with full range of motion, without limitation. Heberden's and Tayler's nodes noted. Skin Normal capillary nail folds. Results Reviewed Results Reviewed: Laboratory Tests 03/13/24 03/28/24 05/04/24 08:50 09:15 09:28 WBC 3.5 L 3.9 L RBC 4.36 4.35 Hgb 13.1 13.2 Hct 39.7 39.3 Plt Count 227 225 Lymph # (Auto) 1.2 1.1 L ESR 6 Sodium 142 Potassium 3.7 Chloride 109 H Carbon Dioxide 27 BUN 17 H Creatinine 0.72 Uric Acid 5.1 Calcium 9.5 AST 29 ALT 25 Alkaline Phosphatase 83 Total Protein 6.5 Albumin 4.2 Urine Color Urine Appearance Urine pH Ur Specific [place] Urine Protein Urine Glucose (UA) Urine Ketones Urine Blood Urine Nitrite Ur Leukocyte Esterase LUCIE Screen POSITIVE A LUCIE Titer 1:40 H DFS, Nuclear DotsXR ANCA Immunofluorescen NEGATIVE SS-A/Ro Antibody <1.0 NEG SS-B/La Antibody <1.0 NEG Scl-70 Scleroderma Ab <1.0 NEG Centromere B Antibody <1.0 NEG 05/04/24 09:35 WBC RBC Hgb Hct Plt Count Lymph # (Auto) ESR Sodium Potassium Chloride Carbon Dioxide BUN Creatinine Uric Acid Calcium AST ALT Alkaline Phosphatase Total Protein Albumin Urine Color Yellow Urine Appearance Clear Urine pH 6.5 Ur Specific [place] <= 1.005 Urine Protein Negative Urine Glucose (UA) Negative Urine Ketones Negative Urine Blood Negative Urine Nitrite Negative Ur Leukocyte Esterase Negative LUCIE Screen LUCIE Titer ANCA Immunofluorescen SS-A/Ro Antibody SS-B/La Antibody Scl-70 Scleroderma Ab Centromere B Antibody XR Right and Left Hands. 04/26/24. Ordered by Teodora Bradley MD (my read) Agree with report, questionable periarticular osteopenia No obvious erosions No chondrocalcinosis noted to the CC Assessment & Plan Assessment & Plan (1) Dry mouth and eyes: Code(s): R68.2 - Dry mouth, unspecified; H04.123 - Dry eye syndrome of bilateral lacrimal glands Category: Medical Plan: #Dry eyes and dry mouth Patient with dry eyes and dry mouth without any other overt symptoms to suggest Sjogren's disease. Her LUCIE is weakly positive 1:40 without any SSA or SSB positivity. Even with this there are a few things that give me concern that she may have some connective tissue disease this includes her lymphopenia and her periarticular osteopenia. Differentials include undifferentiated connective tissue disease, IgG4, sarcoidosis, Sjogren's, lupus. We will check other labs as well as get an MRI of her hands to see if we are missing subclinical synovitis. Refer to ENT to get a lip biopsy. I asked to stain for IgG4 as well. We will see again in 6 weeks (2) Positive LUCIE (antinuclear antibody): Code(s): R76.8 - Other specified abnormal immunological findings in serum Category: Medical Plan: #Positive LUCIE The presence of antinuclear antibodies (LUCIE) is mainly associated with connective tissue diseases (CTD). ?However, their presence is found in healthy people especially in women and patients >65. ?In healthy individuals, the frequency of LUCIE has been shown to be 31.7% of individuals at 1:40 serum dilution, 13.3% at 1:80, 5.0% at 1:160, and 3.3% at 1:320 (2). Some drugs and xenobiotics are also important for the development of LUCIE (hydralazine, hydrochlorothiazide, minocycline, terbinafine, ciprofloxacin, furosemide, omeprazole). Moreover, the deficiency of vitamin D in the body of patients correlates with occurrence of these antibodies (1). At this time there is some suspicion for connective tissue disease given her sicca symptoms, lymphopenia and periarticular osteopenia. Further workup is being done. 1. Mahin?eliceo Aguirre, Margarito Balderas, Niko Villalobos. Antinuclear antibodies in healthy people and non-rheumatic diseases - diagnostic and clinical implications. Reumatologia. 2018;56(4):243-248. doi: 10.5114/reum.2018.71832. Epub 2017Jun 03. PMID: [id number]; PMCID: [id number]. 2. Naren EM, Rosita TE, Ramses JS, Edil B, Hiro R, Mike MJ, Gavin T, Mando JA, Myriam JR, Matt RG, Joon RN, Jag BACON, Liza NF, Dinesh RJ, Petros Y, Rinku A, Hay MR, Sabrina SPEARS. Range of antinuclear antibodies in healthy individuals. Arthritis Rheum. 1996;40(9):1601-11. doi: 10.1002/art.[id number]. PMID: 8309118. Plan I spent 60 minutes reviewing the record and labs, seeing the patient, discussing the treatment plan and documenting in the medical record Orders: Orders MR sabi QUEZADA wo con Today M19.90 - Unspecified osteoarthritis, unspecified site, M35.00 - Sjogren syndrome, unspecified Anti DNA DS Antibody Today M19.90 - Unspecified osteoarthritis, unspecified site, M35.00 - Sjogren syndrome, unspecified Complement C4 Today - Unspecified osteoarthritis, unspecified site, M35.00 - Sjogren syndrome, unspecified Immunoglobulin G Subclasses Today - Unspecified osteoarthritis, unspecified site, M35.00 - Sjogren syndrome, unspecified Immunoglobulins,IgG IgA IgM Today - Unspecified osteoarthritis, unspecified site, M35.00 - Sjogren syndrome, unspecified DNA Double Stranded-Crithidia Today R76.8 - Other specified abnormal immunological findings in serum Angiotensin Converting Enzyme Today R76.8 - Other specified abnormal immunological findings in serum Scleroderma 70 Antibody Today R76.8 - Other specified abnormal immunological findings in serum C Reactive Protein Today R76.8 - Other specified abnormal immunological findings in serum Thyroglobulin Antibodies Today R76.8 - Other specified abnormal immunological findings in serum MR hand RT wo con Today - Unspecified osteoarthritis, unspecified site, M35.00 - Sjogren syndrome, unspecified Complement C3 Today - Unspecified osteoarthritis, unspecified site, M35.00 - Sjogren syndrome, unspecified Protein Electrophoresis, Serum Today - Unspecified osteoarthritis, unspecified site, M35.00 - Sjogren syndrome, unspecified Anti Extractable Nuclear Ag Today R76.8 - Other specified abnormal immunological findings in serum Erythrocyte Sedimentation Rate Today R76.8 - Other specified abnormal immunological findings in serum Thyroid Peroxidase Antibodies Today R76.8 - Other specified abnormal immunological findings in serum XR chest 2V Today D86.9 - Sarcoidosis, unspecified, R76.8 - Other specified abnormal immunological findings in serum Referrals Ear/Nose/Throat Referral - Unspecified osteoarthritis, unspecified site, M35.00 - Sjogren syndrome, unspecified Coding Level of Care Code New Pt Level 5 (76439) Complex EM visit Add On G2211 Diagnoses Dry mouth and eyes R68.2; H04.123 Positive LUCIE (antinuclear antibody) R76.8
[2024-07-14 08:11] VITALS: BP 115/64; PULSE 105; O2SAT 98; BMI 19.3
== END 2024-07-14 09:12 | disposition home or self-care (01) ==
PROVIDERS: PCP Internal Medicine; Visit Provider Student in an Organized Health Care Education/Training Program
DX: R68.2 Dry mouth, unspecified (principal); H04.123 Dry eye syndrome of bilateral lacrimal glands; R76.8 Other specified abnormal immunological findings in serum
CPT/HCPCS: 99205; G2211

== ENCOUNTER → 2024-07-14 08:04 | Outpatient (BNVA) | payer OTHER, SELFPAY | PROVIDERS: PCP Internal Medicine; Visit Provider Student in an Organized Health Care Education/Training Program ==

== ENCOUNTER 2024-07-14 09:26 | Outpatient (REF) | payer OTHER, SELFPAY ==
[2024-07-14 11:17] LABS: C Reactive Protein < 0.10 mg/dL (< or = 0.50)
[2024-07-14 11:26] LABS: Erythrocyte Sedimentation Rate 4 MM/HR (0-20)
[2024-07-17 07:34] LABS: IgA 157 mg/dL (47-310); IgG 640 mg/dL (600-1640); IgM 106 mg/dL (50-300)
[2024-07-17 09:59] LABS: Complement C3 108 mg/dL (83-193)
[2024-07-17 22:29] LABS: Prot Elec - Albumin 4.7 g/dL (3.8-4.8); Prot Elec - Alpha1 0.2 g/dL (0.2-0.3); Prot Elec - Alpha2 0.7 g/dL (0.5-0.9); Prot Elec - Beta 1 0.4 g/dL (0.4-0.6); Prot Elec - Beta 2 0.3 g/dL (0.2-0.5); Prot Elec - Gamma 0.6 g/dL (0.8-1.7); Prot Elec - Total Protein 6.8 g/dL (6.1-8.1)
[2024-07-18 13:37] LABS: Anti DNA DS Antibody <1 IU/mL; SM/Ribonucleoprotein Ab <1.0 NEG AI (<1.0 NEG); Scleroderma 70 Antibody <1.0 NEG AI (<1.0 NEG); Smith Protein <1.0 NEG AI (<1.0 NEG)
[2024-07-18 17:28] LABS: Thyroglobulin Antibodies <1 IU/mL (< or = 1); Thyroid Peroxidase Antibodies 1 IU/mL (<9)
[2024-07-19 15:13] LABS: DNAds, Crithidia Antibody Negative (Negative)
[2024-07-19 16:19] LABS: Immunoglobulin G Subclass 1 290 mg/dL (382-929); Immunoglobulin G Subclass 2 247 mg/dL (241-700); Immunoglobulin G Subclass 3 41 mg/dL (22-178); Immunoglobulin G Subclass 4 5.6 mg/dL (4-86); Immunoglobulin G Total 610 mg/dL (600-1640)
[2024-07-19 20:33] LABS: Angiotensin Converting Enzyme 35 U/L (9-67)
== END 2024-07-14 09:27 | disposition home or self-care (01) ==
LOC: HO.10HDL 09:26
PROVIDERS: Visit Provider Student in an Organized Health Care Education/Training Program
DX: M35.00 Sjogren syndrome, unspecified (principal); R76.8 Other specified abnormal immunological findings in serum; M19.90 Unspecified osteoarthritis, unspecified site
CPT/HCPCS: 36415; 82164; 82784; 84165; 85652; 86140; 86160; 86225; 86235; 86255; 86376; 86800

== ENCOUNTER 2024-08-27 10:37 | Outpatient (REF) | payer OTHER, SELFPAY ==
--- NOTE | ~2024-08-27 | MR_ITS ---
EXAMINATION: MRI OF THE RIGHT HAND WITHOUT CONTRAST MRI OF THE LEFT HAND WITHOUT CONTRAST CLINICAL INFORMATION: Sjogren's syndrome patient reports pain both hands. COMPARISON: X-rays of both hands April 2024. TECHNIQUE: MRI of the right hand is performed without contrast and high field MRI scanner. MRI left hand is performed without contrast and high field MRI scanner. FINDINGS: Right hand: Osseous structures: Pisiform triquetral joint: Subchondral cysts on the triquetral side of the joint compatible with a focal arthrosis. Remaining bone and joints normal. No effusion or synovitis. Ligaments and capsule structures: Normal. Muscles/tendons: Normal. Neurovascular structures: Normal. Subcutaneous soft tissues: Normal. Left hand: Osseous structures: Triscaphe joint subchondral cysts on this scaphoid side of the joint indicative of focal arthrosis. No effusion, The remaining bone and joints are normal. No synovitis. No arthrosis. No marginal erosions. Ligaments and capsule structures: Normal. Muscles/tendons: Normal. Neurovascular structures normal. Subcutaneous soft tissues normal. Additional findings: Small lobulated cystic-appearing mass/collection abutting the ulnar aspect of the 1st MCP joint have the appearance of a ganglion cyst. This measures 6 x 3.5 x 8 mm. 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 No specific evidence of inflammatory arthropathy or synovitis. Left hand: Mild arthrosis of the triscaphe joint. No specific evidence of inflammatory arthropathy or synovitis. Small ganglion cyst abutting the ulnar aspect of the 1st MCP joint. Electronically signed by: Mayo Burns MD 09/12/2024 04:24 PM [facility] [place]
--- NOTE | ~2024-08-27 | MR_ITS ---
EXAMINATION: MRI OF THE RIGHT HAND WITHOUT CONTRAST MRI OF THE LEFT HAND WITHOUT CONTRAST CLINICAL INFORMATION: Sjogren's syndrome patient reports pain both hands. COMPARISON: X-rays of both hands April 2024. TECHNIQUE: MRI of the right hand is performed without contrast and high field MRI scanner. MRI left hand is performed without contrast and high field MRI scanner. FINDINGS: Right hand: Osseous structures: Pisiform triquetral joint: Subchondral cysts on the triquetral side of the joint compatible with a focal arthrosis. Remaining bone and joints normal. No effusion or synovitis. Ligaments and capsule structures: Normal. Muscles/tendons: Normal. Neurovascular structures: Normal. Subcutaneous soft tissues: Normal. Left hand: Osseous structures: Triscaphe joint subchondral cysts on this scaphoid side of the joint indicative of focal arthrosis. No effusion, The remaining bone and joints are normal. No synovitis. No arthrosis. No marginal erosions. Ligaments and capsule structures: Normal. Muscles/tendons: Normal. Neurovascular structures normal. Subcutaneous soft tissues normal. Additional findings: Small lobulated cystic-appearing mass/collection abutting the ulnar aspect of the 1st MCP joint have the appearance of a ganglion cyst. This measures 6 x 3.5 x 8 mm. 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 No specific evidence of inflammatory arthropathy or synovitis. Left hand: Mild arthrosis of the triscaphe joint. No specific evidence of inflammatory arthropathy or synovitis. Small ganglion cyst abutting the ulnar aspect of the 1st MCP joint. Electronically signed by: Mayo Burns MD 09/12/2024 04:24 PM [facility] [place]
== END 2024-08-27 10:38 | disposition home or self-care (01) ==
LOC: HO.MRI 10:37
PROVIDERS: PCP Internal Medicine; Visit Provider Student in an Organized Health Care Education/Training Program
DX: M35.00 Sjogren syndrome, unspecified (principal); M19.90 Unspecified osteoarthritis, unspecified site
CPT/HCPCS: 73218

== ENCOUNTER 2024-08-29 08:30 | Outpatient (AMB) | payer OTHER, SELFPAY ==
[2024-08-29 08:33] VITALS: BP 108/62; PULSE 84; O2SAT 100; BMI 19.5
--- NOTE | 2024-08-29 08:33 | A.OFFVIS_ITS ---
Vital Signs 08/29/24 08:33 Height 5 ft 1 in Weight 103 lb 2.821 oz BMI 19.5 BP 108/62 Blood Pressure Location Lt brachial Position Sitting Pulse 84 Pulse Source Pulse Oximeter Pulse Oximetry (%) 100 Oxygen Delivery Method Room Air Intake Visit Reasons: abnormal lab/LVM Intake Note: Patient presents today for follow up on abnormal lab. She was last seen on 07/14/[address] Toney. Allergies lidocaine Allergy (Severe, Verified 08/29/24 08:34) Heart erthythmia HPI Comments Details: Patient is a 59-year-old female with hyperlipidemia, anxiety, dry eyes who is here for follow-up of polyarthralgias Interval History: Patient last seen 07/14/2024. At that time patient was establishing care for evaluation of polyarthralgias in the setting of dry eyes and dry mouth. Following up today patient has completed her lip biopsy and MRI of hands unfo rtunately the results are not ready as yet. Otherwise patient remains the same. Of note she followed my advice and got her living space evaluated and was it was found to have trace evidence of black mold in the air. No weight loss, lymphadenopathy, night sweats, fevers or rashes. Rheumatologic History: Patient established care 07/14/2024 after presenting for evaluation of polyarthralgias in the setting of dry eyes. Patient had intermittent joint pain involving the PIPs and DIPs without overt morning stiffness. She also reported worsening fatigue. At that evaluation she had a positive LUCIE 1:40 with negative SSA/SSB, High, Scl 70, double-stranded DNA, centromere. Normal complements. 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 Current Rheumatology Medication(s): [facility] Medical History (Updated 08/29/24 @ 08:53 by Kyara Toney MD) Polyarthralgia Dry mouth and eyes IBS (irritable bowel syndrome) Shingles Hernia Surgical History H/O Spinal surgery H/O breast biopsy H/O section Family History Mother Hypercholesteremia Thyroid disorder Dementia Father Brain cancer Maternal Grandmother Alzheimer disease Paternal Grandmother Dementia Paternal Grandfather Prostate cancer Social History Housing: House Patient Tobacco Use Status: Never used Tobacco e-Cigarette/Vaping Use: Never Used service: No Current occupational status: employed Current occupation: CPA Current occupational exposures/hazards: No Cognitive needs: No Hearing needs: No Vision needs: No Review of Systems Const Details: Review of Systems Constitutional: Denies fever, chills, weight loss ENT: Denies vision changes, eye pain or eye redness, dental caries, dry mouth GI: Denies nausea, vomiting, diarrhea, abdominal pain, change in BM Pulm: Denies SOB, MATHIS, hemoptysis, wheezing Cards: Denies chest pain, palpitations Skin: Denies Raynaud's, rash, nail changes, photosensitivity, GROUND SERVICES INSTRUCTOR: Denies headaches, weakness, paresthesias, recurrent falls MSK: as per HPI All other systems reviewed and are unremarkable except noted above Physical Exam Vital Signs: Last Vital Signs Pulse 84 08/29/24 08:33 BP 108/62 08/29/24 08:33 Pulse Ox 100 08/29/24 08:33 Oxygen Delivery Method Room Air 08/29/24 08:33 BMI result Body Mass Index 19.5 Physical Examination CONSTITUITIONAL Patient alert and cooperative. Well appearing and in no apparent painful distress HEENT Conjunctiva and sclera clear. ?Pupils equal round and reactive to light. ?No lymphadenopathy. ?Normal dentition. No oral or nasal ulcers noted. No evidence of discoid rash to the saranya of ears CHEST/RESPIRATORY SYSTEM Normal respiratory effort and able to speak in complete sentences. ?Clear to auscultation bilaterally. ?No crackles, rales, rhonchi, wheezes heard. CARDIAC SYSTEM Regular rate and rhythm. ?S1 and S2 heard no murmurs. ?Radial pulses intact bilaterally MSK Hands: ?Good molecular biology professor strength bilaterally - 5/5. ?No deformities noted. ?No synovitis noted to the MCPs, PIPs or DIPs. ?No tenderness to palpation of these joints. Wrists: ?Full range of motion at the wrists without pain. ?No tenderness to palpation or synovitis noted to the wrists. Elbows: Full range of motion without pain. No tenderness, weakness, swelling, in creased warmth or erythema. Shoulders: Full range of motion without pain. No tenderness, weakness, swelling, increased warmth or erythema. Knees: ?Full range of motion. ?No tenderness, swelling, increased warmth or erythema.?No effusion or crepitations Ankles: Full range of motion. ?No tenderness, swelling, increased warmth or erythema.? Feet: ?Negative squeeze test. ?No tenderness to palpation or swelling of the MTPs. SKIN Skin intact without rashes. Results Reviewed Results Reviewed: Laboratory Tests 03/13/24 07/14/24 08:50 09:30 C-Reactive Protein < 0.10 IgG Total 610 IgG Subclass 1 290 L IgG Subclass 2 247 IgG Subclass 3 41 IgG Subclass 4 5.6 LUCIE Screen POSITIVE A LUCIE Titer 1:40 H SS-A/Ro Antibody <1.0 NEG SS-B/La Antibody <1.0 NEG Sm (High) Antibody <1.0 NEG SM/LIBRARY SCIENCE INSTRUCTOR IgG Antibody <1.0 NEG Scl-70 Scleroderma Ab <1.0 NEG Double Strand DNA Ab <1 Anti-ds DNA (Crithidia) Negative Complement C3 108 Complement C4 21 Assessment & Plan Assessment & Plan (1) Polyarthralgia: Code(s): M25.50 - Pain in unspecified joint Category: Medical Plan: #Polyarthralgias Patient with polyarthralgias in the setting of dry eyes and dry mouth with dental caries. Concerning for Sjogren's disease. Status post lip biopsy with ENT. Awaiting pathology. Contacted Dr. Martin at [facility] ([phone]) to ensure that the biopsy would also be stained for IgG4. Resul ts so far have been unremarkable with respect to autoimmune disease with normal complements, negative AVNI and Sjogren's antibodies. 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 Patient to get serum and urine immunofixation as well as kappa and lambda chain analysis. Of note she has this diagnosis of mast cell activation disorder based on a slightly elevated tryptase. I agree with Allergy and immunology referral. Although I will say that mastocytosis usually has a tryptase level greater than 20 and hers is 12. (2) Dry mouth and eyes: Code(s): R68.2 - Dry mouth, unspecified; H04.123 - Dry eye syndrome of bilateral lacrimal glands Category: Medical Plan: #Dry eyes and dry mouth Continue conservative management. Awaiting results of lip biopsy. (3) Positive LUCIE (antinuclear antibody): Code(s): R76.8 - Other specified abnormal immunological findings in serum Category: Medical Plan: #Positive LUCIE The presence of antinuclear antibodies (LUCIE) is mainly associated with connective tissue diseases (CTD). ?However, their presence is found in healthy people especially in women and patients >65. ?In healthy individuals, the frequency of LUCIE has been shown to be 31.7% of individuals at 1:40 serum dilution, 13.3% at 1:80, 5.0% at 1:160, and 3.3% at 1:320 (2). Some drugs and xenobiotics are also important for the development of LUCIE (hydralazine, hydrochlorothiazide, minocycline, terbinafine, ciprofloxacin, furosemide, omeprazole). Moreover, the deficiency of vitamin D in the body of patients correlates with occurrence of these antibodies (1). At this time there is some suspicion for connective tissue disease given her sic ca symptoms, lymphopenia and periarticular osteopenia. Further workup is being done. 1. Tamia Aguirre, Margarito Balderas, Niko Villalobos. Antinuclear antibodies in healthy people and non-rheumatic diseases - diagnostic and clinical implications. Reumatologia. 2018;56(4):243-248. doi: 10.5114/reum.2018.71999. Epub 2017Jun 03. PMID: 02387615; PMCID: [id number]. 2. Sneed EM, Rosita TE, Ramses JS, Edil B, Hiro R, Mike MJ, Gavin T, Mando JA, Myriam JR, Matt RG, Jono RN, Jag BACON, Liza NF, Dinesh RJ, Petros Y, Rinku A, Hay MR, Sabrina SPEARS. Range of antinuclear antibodies in healthy individuals. Arthritis Rheum. 1996;40(9):1601-11. doi: 10.1002/art.[id number]. PMID: 9309952. Plan I spent 40 minutes reviewing the record and labs, seeing the patient, discussing the treatment plan, contacting Dr. Martin that [facility], contacting [facility] for expedited read of MRI hands and documenting in the medical record ? Orders: Orders Ferritin Today D89.49 - Other mast cell activation disorder, M25.50 - Pain in unspecified joint Immunofixation, Random Urine Today M25.50 - Pain in unspecified joint Immunofixation Pnl, Serum Today M25.50 - Pain in unspecified joint Coding Level of Care Code Est Pt Level 5 (79822) Diagnoses Polyarthralgia M25.50 Dry mouth and eyes R68.2; H04.123 Positive LUCIE (antinuclear antibody) R76.8
== END 2024-08-29 09:19 | disposition home or self-care (01) ==
PROVIDERS: PCP Internal Medicine; Visit Provider Student in an Organized Health Care Education/Training Program
DX: M25.50 Pain in unspecified joint (principal); R68.2 Dry mouth, unspecified; H04.123 Dry eye syndrome of bilateral lacrimal glands; R76.8 Other specified abnormal immunological findings in serum
CPT/HCPCS: 99215

== ENCOUNTER → 2024-08-29 08:30 | Outpatient (BNVA) | payer OTHER, SELFPAY | PROVIDERS: PCP Internal Medicine; Visit Provider Student in an Organized Health Care Education/Training Program ==

== ENCOUNTER 2024-10-11 14:07 | Outpatient (REF) | payer OTHER, SELFPAY ==
[2024-10-11 16:23] LABS: Ferritin 35 ng/mL (10-250)
[2024-10-16 10:44] LABS: PEU-Protein Creat Ratio Rand 0.056 (0.024-0.184); PEU-Rand. Prot/Creat Ratio 56 mg/g creat (24-184); PEU-Random Ur. Gamma Globulin 0 %; PEU-Random Urine A1 Globulin 0 %; PEU-Random Urine A2 Globulin 0 %; PEU-Random Urine Albumin 100 %; PEU-Random Urine Beta Globulin 0 %; PEU-Random Urine Creatinine 89 mg/dL (20-275); PEU-Random Urine Protein 5 mg/dL (5-24)
[2024-10-16 15:54] LABS: IgA 146 mg/dL (47-310); IgG 631 mg/dL (600-1640); IgM 105 mg/dL (50-300)
[2024-10-16 16:04] LABS: Kappa, Serum 148 mg/dL (176-443); Kappa/Lambda Ratio, Serum 1.57 (1.29-2.55); Lambda, Serum 94 mg/dL (91-240)
== END 2024-10-11 14:08 | disposition home or self-care (01) ==
LOC: HO.LAB 14:07
PROVIDERS: PCP Internal Medicine; Visit Provider Student in an Organized Health Care Education/Training Program
DX: D80.1 Nonfamilial hypogammaglobulinemia (principal); D89.49 Other mast cell activation disorder; M25.50 Pain in unspecified joint
CPT/HCPCS: 82570; 82728; 82784; 83883; 84156; 84166; 86334; 86335

== ENCOUNTER 2025-08-14 11:32 | Outpatient (AMB) | payer OTHER, SELFPAY ==
--- NOTE | 2025-08-14 11:36 | A.OFFPC_ITS ---
Vital Signs 08/14/25 11:40 Height 5 ft 1 in Weight 102 lb 2 oz BMI 19.3 BP 118/69 Blood Pressure Location Rt brachial Position Sitting Respiration 16 Pulse 103 H Pulse Source Pulse Oximeter Temp 97.7 F Temp Source Oral Pulse Oximetry (%) 100 Oxygen Delivery Method Room Air Intake Visit Reasons: right ear fullness Intake Note: patient here c/o right ear fullness for the last 3 days Speech Therapist Technician Required: No Is last menstrual period known: No Post menopausal: No Patient : No Allergies lidocaine Allergy (Severe, Verified 08/14/25 11:51) Heart erthythmia Medication List - Last Reconciled 08/14/25 by Tuan Cooley CNP cholecalciferol (vitamin D3) 125 mcg PO DAILY vitamin K2 90 mcg PO DAILY Tobacco use date assessed: 08/14/25 Dental Screening Dental Screen Date: 08/14/25 Did you have a dental visit in the last 12 months?: Yes Did you have a dental problem in the last 6 months where you did not have access to dental care?: No Was dental information given to patient?: Patient has dentist HPI HPI Comments History of Present Illness Details 60-year-old female presents with complai nts blocked right ear for the past 3 days. She notes that she that the ear feels muffled and she could barely hear in it. She had similar symptoms in June which completely resolved with sudafed. However, sudafed is not effective this time. She had upper respiratory symptoms two weeks ago; she started feeling almost at baseline over the past weekend - she started exercising. She usually wears earplugs for sleep. She denies ear pain. [facility] Medical History (Updated 08/14/25 @ 12:08 by Tuan Cooley CNP) Polyarthralgia Dry mouth and eyes IBS (irritable bowel syndrome) Shingles Hernia Surgical History H/O Spinal surgery H/O breast biopsy H/O section Family History Mother Hypercholesteremia Thyroid disorder Dementia Father Brain cancer Maternal Grandmother Alzheimer disease Paternal Grandmother Dementia Paternal Grandfather Prostate cancer Social History Housing: House Patient Tobacco Use Status: Never used Tobacco e-Cigarette/Vaping Use: Never Used Patient : No service: No Current occupational status: employed Current occupation: CPA Current occupational exposures/hazards: No Cognitive needs: No Hearing needs: No Vision needs: No Questionnaire PHQ-9 Over the last 2 weeks, how often have you been bothered by any of the following problems? 1. Little interest or pleasure in doing things: not at all 2. Feeling down, depressed, or hopeless: not at all 3. Trouble falling or staying asleep, or sleeping too much: not at all 4. Feeling tired or having little energy: several days 5. Poor appetite or overeating: not at all 6. Feeling bad about yourself - or that you are a failure or have let yourself or your family down: not at all 7. Trouble concentrating on things, such as reading the newspaper or watching television: not at all 8. Moving or speaking so slowly that other people could have noticed. Or the opposite - being so fidgety or restless that you have been moving around a lot more than usual: not at all 9. Thoughts that you would be better off or of hurting yourself in some way: not at all Total score: 1 Source: Developed by Drs. Kendrick Randall, Rhiannon Osborn, Gilberto Stubbs and colleagues, with an educational latricia from [employer]. Thrive Questionnaire Date Thrive assessed: 08/13/25 I am a: Patient What is your living situation today?: I have a steady place to live Within the past 12 months, did the food you bought not last and you didn't have the money to get more?: Never true Within the past 12 months, did you worry whether your food would run out before you got money to buy more?: Never true Do you have trouble paying for medicines?: No Do you have trouble getting transportation to medical appointments?: No Do you have trouble paying your heating and electricity bill?: No Do you have trouble taking care of your child, family member or friend?: No Do you have trouble with day-to-day activities such as bathing, preparing meals, shopping, managing finances, etc.?: No Are you currently unemployed and looking for a job?: No Are you interested in more education?: No Please select the resources that you would like help with: None Currently or been in a relationship where the following occur: No concerns reported THRIVE Score: 0 AUDIT C Alcohol Use Questionnaire (AUDIT-C) 1. How often do you have a drink containing alcohol?: 2-4 times a month 2. How many drinks containing alcohol do you have on a typical day when you are drinking?: 1 or 2 3. How often do you have six or more drinks on one occasion?: Never Total Score: 2 RAD-7 AMB Questionnaire RAD-7 Date RAD - 7 assessed: 03/10/24 Feeling nervous, anxious, or on edge: 0 = Not at all Not being able to stop or control worryin = Not at all Worrying too much about different things: 1 = Several days Trouble relaxin = Several days Being so restless that it is hard to sit still: 0 = Not at all Becoming easily annoyed or irritable: 0 = Not at all Feeling afraid as if something awful might happen: 0 = Not at all Total RAD-7 score (0-4 normal; 5-9 mild; 10-14 moderate; 15-21 severe): 2 Source: Developed by Drs. Kendrick Randall, Rhiannon Osborn, Gilberto Stubbs and colleagues, with an educational latricia from [employer]. Review of Systems Const Details: Const Denies chills, Denies fatigue, Denies fever(s), Denies headache(s) and Denies weakness ENT Reports as per HPI Card Denies chest pain, Denies lightheadedness, Denies dyspnea and Denies other (Palpitations) Resp Denies cough, Denies dyspnea, Denies wheezing and Denies other ( shortness of breath) GI Denies abdominal pain, Denies melena, Denies hematochezia, Denies change in bowel habits, Denies dyspepsia and Denies nausea Denies hematuria and Denies dysuria Musc Denies abnormal gait, Denies myalgias, Denies arthralgias, Denies numbness and Denies tingling Skin/Breast Denies rash, Denies unusual bruising and Denies wounds Neuro Denies abnormal gait, Denies dizziness, Denies headache(s), Denies memory loss, Denies numbness, Denies Sensory deficit (Neuro), Denies tingling and Denies weakness Psych Denies anxiety, Denies depression, Denies memory loss Endo Denies cold intolerance, Denies fatigue, Denies heat intolerance, Denies polydipsia and Denies polyuria Aller/Immun Denies wheezing Physical exam (Primary Care) Vital Signs: Last Vital Signs Temp 97.7 F 08/14/25 11:40 Pulse 103 H 08/14/25 11:40 Resp 16 08/14/25 11:40 BP 118/69 08/14/25 11:40 Pulse Ox 100 08/14/25 11:40 Oxygen Delivery Method Room Air 08/14/25 11:40 BMI result Body Mass Index 19.3 Tobacco/Smoking Status: Tobacco use Status Tobacco use date assessed 08/14/25 08/14/25 11:44 Patient Tobacco Use Status Never used Tobacco 08/14/25 11:38 e-Cigarette/Vaping Use Never Used 08/14/25 11:38 PHQ-9: PHQ-9 Score PHQ-9: Total score 1 08/14/25 11:38 Thrive Assessment: Date of Thrive Assessment Date Thrive assessed 08/13/25 08/14/25 11:38 Currently or been in a relationship where the following occur: No concerns reported Const Other: General: no acute distress and well developed Nutritional Appearance: well nourished Orientation/consciousness: patient oriented x3 HENMT Head is normocephalic Right ear canal with significant amount of cerumen occluding the TM, left ear canal and TM normal Nasal turbinates and oropharynx are pink and moist Sinuses are nontender with palpation No auricular or cervical lymphadenopathy Eyes General: appearance normal, both eyes and all related structures Pupils: Equal, round and reactive pupils present EOM: EOMs intact bilaterally Resp Effort & Inspection: normal respiratory effort Auscultation: clear to auscultation bilaterally Cardio Rate: regular rate Rhythm: regular rhythm Heart sounds: S1 normal heart sound present, S2 normal heart sound present, no gallops, no murmurs and no rubs Skin General: warm and dry. Normal skin color. Normal skin turgor Neuro General: patient oriented x3, gait normal and no focal neuro deficit Cranial nerves: Yes Equal, round and reactive pupils present Cognition (Neuro): normal cognition Gait exam (Neuro): Normal gait present Sensory Exam: No Sensory deficit (Neuro) Psych Appearance: grossly normal Affect: normal affect Attitude: cooperative Thought process: Normal thought process present Coding Level of Care Code Est Pt Level 4 (11726) Diagnoses Impacted cerumen, right ear H61.21 Assessment & Plan Assessment & Plan (1) Impacted cerumen, right ear: Code(s): H61.21 - Impacted cerumen, right ear Category: Medical Plan: Right ear canal with significant amount of cerumen occluding the TM, left ear canal and TM normal. Significant amount of cerumen removed from the right ear with he a lavage. Patient reports significant hearing improvement following the procedure. She notes that her ear no longer feels plugged. Advised to use earplugs cautiously as taking cause cerumen buildup. Follow-up as needed. Verbalized understanding and agreed with the plan.
[2025-08-14 11:40] VITALS: BP 118/69; PULSE 103; RESP 16; TEMP 36.5; O2SAT 100; BMI 19.3
--- OUTSIDE RECORDS SUMMARY | 2025-08-14 13:38 | XMS_ITS | Encounter Summary ---
Author Organization [facility] Address [address] [facility] [address] [place] [id number] Phone Care Team Providers Care Event Promotions Coordinator Name Role Phone Teodora Henry MD Primary Care Provider + [phone] Encounter Details Date Type Department Care Team (Late st Contact Info) Description 08/20/2021 Procedure Pass [facility] [address] [place] [address] Social History Tobacco Use Types Packs/Day Years Used Date Smoking Tobacco: Never Smokeless Tobacco: Never Alcohol Use Standard Drinks/Week Comments Yes 1 (1 standard drink = 0.6 oz pur e alcohol) 1 glass a week Comments No Sex and Gender Information Value Date Recorded Sex Assigned at Female 07/17/2021 12:14 PM EDT Legal Sex Female 6:45 PM EST Gender Identity Female 07/17/2021 12:14 PM EDT Sexual Orientation Straight 07/17/2021 12 :14 PM EDT documented as of this encounter Functional Status * Calculated C-SSRS Risk Score (Lifetime/Recent) Answer Date of Assessment Author No Risk Indicated 08/20/2021 7:00 PM Alfie Mckinnon, YENIFER * [place] Suicide Severity Rating Scale (Screener/Recent Self-Report) Question Answer Date of Assessment Author 1. Wish to be (Past 1 Month) No 021 7:00 PM Alfie Mckinnon, YENIFER 2. Non-Specific Active Suici chantal Thoughts (Past 1 Month) No 08/20/2021 7:00 PM Lauri Mckinnon, YENIFER 6. Suicidal Behavior (Lifetime) No 7:00 PM Alfie Mckinnon RN documented as of this encounter Plan of Treatment Not on file documented as of this encounter Visit Diagnoses Not on filedocumented in this encounter Care Teams Event Promotions Coordinator Relationship Specialty Start Date End Date Teodora Henry MD PCP - General Internal Medicine 07/17/21 documented as of this encounter Additional Source Comments The information contained in this document represents components of the legal health record. It is not the complete legal health record.[facility]
--- OUTSIDE RECORDS SUMMARY | 2025-08-14 13:38 | XMS_ITS | Encounter Summary ---
Author Organization [facility] Address [address] [place] [phone] Phone Care Team Providers Care Seed Buyer Name Role Phone Teodora Henry MD Primary Care Provider + [phone] Encounter Details Date Type Department Care Team (Late st Contact Info) Description 08/20/2021 Procedure Pass [facility] [address] [place] [id number] Social History Tobacco Use Types Packs/Day Years [...] No Risk Indicated 08/20/2021 7:00 PM Alfie Mckinnon RN * [place] Suicide Severity Rating Scale (Screener/Recent Self-Report) Question Answer Date of Assessment Author 1. Wish to be (Past 1 Month) No 021 7:00 PM Alfie Mckinnon RN 2. Non-Specific Active Suici chantal Thoughts (Past 1 Month) No 08/20/2021 7:00 PM Lauri Mckinnon RN 6. Suicidal Behavior (Lifetime) No 1 7:00 PM Alfie Mckinnon RN documented as of this encounter Plan of Treatment Not on file documented as of this encounter Visit Diagnoses Not on filedocumented in this encounter Care Teams Seed Buyer Relationship Specialty Start Date End Date Teodora Henry MD PCP - General Internal Medicine 07/17/21 documented as of this encounter Additional Source Comments The information contained in this document represents components of the legal health record. It is not the complete legal health record.[facility]
--- OUTSIDE RECORDS SUMMARY | 2025-08-14 13:38 | XMS_ITS | Clinical Summary ---
Author Organization [facility] Address [address] [facility] [address] [place] [id number] Phone Care Team Providers Care Cooling System Operator Name Role Phone Teodora Henry MD Primary Care Provider [phone] Allergies No known active allergies Medications ENULOSE 10 gram/15 mL solution 07/16/2021 Active elderberry fruit and flower 460-115 mg Cap Take by mouth. Active celecoxib (CELEBREX) 200 MG capsuleIndicatio ns:Low back pain, unspecified back pain laterality, unspecified chronicity, unspecified whether sciatica present Take 1 capsule (200 mg total) by mouth 2 (two) times a day. 20 capsule 08/14/2021 Active ibuprofen (ADVIL,MOTRIN) 800 MG tablet Take 1 tablet (800 mg total) by mouth every 6 (six) hours as needed. 28 tablet 08/22/2021 Active acetaminophen (TYLENOL) 325 mg tablet Take 2 tablets (650 mg total) by mouth every 6 (six) hours as needed for mild pain or fever. 0 08/22/2021 Active Active Problems Problem Noted Date Diagnosed Date Schwannoma of spinal cord 08/20/2021 Social History Tobacco Use Types Packs/Day Years Used Date Smoking Tobacco: Never Smokeless Tobacco: Never Alcohol Use Standard Drinks/Week Comments Yes 1 (1 standard drink = 0.6 oz pur e alcohol) 1 glass a week Education Answer Date Recorded Are you interested in more education? Not on yamilet e 01/30/2023 Are you concerned about learning? Not on file 01/30/2023 No 01/30/2023 No 01/30/2023 Digital Access Answer Date Recorded No 02/28/2023 No 02/28/2023 No 02/28/2023 Reliable internet access at home? Not on file 02/28/2023 Device with a working camera? Not on file Comments No Sex and Gender Information Value Date Recorded Sex Assigned at Female 07/17/2021 12:14 PM EDT Legal Sex Female 6:45 PM EST Gender Identity Female 07/17/2021 12:14 PM EDT Sexual Orientation Straight 07/17/2021 12 :14 PM EDT Last Filed Vital Signs Vital Sign Reading Time Taken Comments Blood Pressure 112/65 08/22/2021 11:51 AM EST Pulse 90 08/22/2021 11:51 AM EST Temperature 37.2 C (99 F) 08/22/2021 11:51 AM EST Respiratory Rate 16 08/22/2021 11:5 1 AM EST Oxygen Saturation 97% 08/22/2021 11: 51 AM EST Inhaled Oxygen Concentration - - Weight 46.2 kg (101 lb 13.6 oz) 08/20/2021 7:30 AM EST Height 154.9 cm (5' 1 ) 08/20/2021 5:25 PM EST Body Mass Index 19.24 08/20/2021 7:30 AM EST Plan of Treatment Health Maintenance Due Date Last Done Comments LIPID PANEL 1966 DEPRESSION SCREENING 1978 HEPATITIS C SCREENING 1984 HIV ONE-TIME SCREENING (18-6 5 YEARS) 1984 PNEUMOCOCCAL VACCINES (50+ years) (1 of 2 - PCV) 1985 PAP SMEAR 1987 MAMMOGRAM 2006 COLOGUARD 2011 COLONOSCOPY 2011 COLORECTAL CANCER SCREENING 2011 FIT TEST 2011 FOBT 2011 SIGMOIDOSCOPY 2011 VIRTUAL COLONOSCOPY 2011 ZOSTER VACCINES (1 of 2) 2016 Adult Td,Tdap Booster 09/23/2021 09/23/2011 INFLUENZA VACCINE (#1) 2025 COVID-19 VACCINE (3 - 2024-2 6 season) 2025 10/13/2021, 09/22/2021 RSV VACCINE (1 - 1-dose 75+ series) 2041 SMOKING STATUS SCREENING (On ce After 26 Yrs) Completed 08/15/2021 HEPATITIS A VACCINES Aged Out No long er eligible based on patient's age to complete this topic HIB VACCINES Aged Out No longer eligi ble based on patient's age to complete this topic IPV VACCINES Aged Out No longer eligi ble based on patient's age to complete this topic MENINGOCOCCAL VACCINES (ACWY) Aged Out No longer eligible based on patient's age to complete this topic MENINGOCOCCAL VACCINES (B) Aged Out N o longer eligible based on patient's age to complete this topic Medical Devices Implanted Type Area Paint Spray Inspector Device Identifier Shelf Expiration Date Model / Serial / Lot Graft Tissue 2.0 Montse Duragen Plus Ultra Pure Collagen Regeneration Matrix Dural Ca/1ea - Snone Implanted:Qty: 1 on 08/20/2021 by Gaby Ulrich MD, PhD at [facility] STANDARD [employer] 05/03/2024 [id number] / [id number] / [id number] Sealant Dural Adherus Autospray Extended Tip Pk/5ea - Snone Implanted:Qty: 1 on 08/20/2021 by Gaby Ulrich MD, PhD at [facility] Spine Lumbar [employer] 05/03/2023 [id number] / [id number] / [id number] Insurance [employer] O POS EPO [facility] POS EPO [facility] POS EPO [facility] [place] [address] [facility] POS EPO [facility] POS EPO [facility] POS EPO Advance Directives For more information, please contact: [phone] (9AM - 5PM [facility], Wednesday-Wednesday) Documents on File Type Date Recorded Patient University Tutor Expl anation Healthcare Proxy 08/25/2021 2:13 PM * Full Code (Latest Code Status on File) Date Activated Date Inactivated Comments 08/21/2021 7:56 AM Question Answer Comments Code Status Confirmed With: Patient Care Teams Cooling System Operator Relationship Specialty Start Date End Date Teodora Henry MD PCP - General Internal Medicine 07/17/21 Additional Source Comments The information contained in this document represents components of the legal health record. It is not the complete legal health record.[facility]
== END 2025-08-14 12:17 | disposition home or self-care (01) ==
LOC: HO.HMCFM 11:32
PROVIDERS: PCP Internal Medicine; Visit Provider Nurse Practitioner Family
DX: H61.21 Impacted cerumen, right ear (principal)